=== PATIENT | female | born 1990 | race Caucasian/White ===

== ENCOUNTER 2023-12-16 09:06 | Emergency (ER) | payer OTHER, SELFPAY ==
[2023-12-16 09:32] VITALS: BP 119/76; PULSE 77; RESP 20; TEMP 36.3; O2SAT 100
--- NOTE | 2023-12-16 10:19 | ED.URI ---
HPI - URI/Sore Throat General Chief Complaint: Upper Respiratory Infection Stated Complaint: poss sinus infection History of Present Illness HPI Narrative: 33-year-old female presented for complaint of nasal congestion and pressure for over 1 week. Sinus pressure is mostly between the eyes and has thick nasal drainage. She has sore throat and cough at the onset which resolved. She has been taking [id number] Mucinex without significant improvement. Denies shortness of breath, wheezing nausea vomiting diarrhea, fevers or chills. Related Data Home Medications Medication Instructions Recorded Confirmed fluoxetine 20 mg capsule 60 mg PO DAILY 12/16/23 12/16/23 phentermine 37.5 mg tablet 37.5 mg PO DAILY 12/16/23 12/16/23 topiramate 25 mg tablet 25 mg PO DAILY 12/16/23 12/16/23 Allergies Allergy/AdvReac Type Severity Reaction Status Date / Time No Known Allergies Allergy Verified 12/16/23 09:41 Review of Systems Review of Systems: CONSTITUTIONAL: Denies body aches, fever, chills, or sweats. EYES: Denies visual changes, redness, or discharge. ENT: reports rhinorrhea, congestion, denies sore throat, otalgia. CARDIOVASCULAR: Denies chest pain, palpitations, or edema. RESPIRATORY: Denies dyspnea. GASTROINTESTINAL: Denies abdominal pain, nausea, vomiting, or diarrhea. SKIN: Denies rash NEUROLOGIC: reports headache Exam Narrative: GENERAL: well-appearing, no acute distress. EYES: conjunctivae clear ENT: Mucous membranes moist. TMs pearly pickett with normal light reflex bilaterally; no tragal tenderness. Oropharynx not erythematous without lesions. Tonsils not enlarged and without exudate. No drooling, no hoarseness, no trismus, uvula midline. No tripod positioning, hot potato voice, or soft palate swelling. NECK: Supple. No lymphadenopathy CHEST: Clear to auscultation, breath sounds equal. No respiratory distress, speaks in full sentences. HEART: Regular rate and rhythm. No murmur heard. SKIN: Warm, dry, no rash. NEURO: Alert and oriented x3. Course Course Emergency Course: Patient is aware of diagnosis, understands and agrees to treatment plan. Anticipatory guidance given. Patient agrees to follow-up as directed and is aware of reasons to seek care at the emergency department. Portions of this record may have been created with voice recognition software Level of Care: Express Care Visit Vital Signs Vital signs: Vital Signs Temperature 97.4 F L 12/16/23 09:32 Pulse Rate 77 12/16/23 09:32 Respiratory Rate 20 12/16/23 09:32 Blood Pressure 119/76 12/16/23 09:32 Pulse Oximetry 100 12/16/23 09:32 Oxygen Delivery Room Air 12/16/23 09:32 Temperature 97.4 F L 12/16/23 09:32 Pulse Rate 77 12/16/23 09:32 Respiratory Rate 20 12/16/23 09:32 Blood Pressure 119/76 12/16/23 09:32 Pulse Oximetry 100 12/16/23 09:32 Oxygen Delivery Room Air 12/16/23 09:32 MDM - URI/Sore Throat MDM Narrative Medical decision making narrative: discussed physical exam findings, reviewed prescriptions, Advise supportive treatments. Patient is appropriate for outpatient treatment and follow-up. Differential Diagnosis Differential diagnosis: Likely upper respiratory infection, otitis media, sinusitis, viral infection and pharyngitis Discharge Plan Discharge Clinical Impression: Sinusitis Patient Disposition: Home, Self-Care Condition: Stable Instructions: Antibiotic Form, Rhinosinusitis (ED) Additional Instructions: Take antibiotic as directed Recommend Flonase spray and Zyrtec (or Claritin/Tequila) Tylenol 1000mg every 8 hours as needed for pain Symptomatic treatment includes: rest, push fluids, and increase humidity of the air at home. Follow up with your primary care provider in 1 week. Go to the ER for worsening symptoms or concerns. Prescriptions: New doxycycline hyclate 100 mg tablet 100 mg PO BID 7 Days Qty: 14 0RF No Action topiramate 25 mg tablet 25 mg PO DAILY phentermine 37.5 mg tablet 37.5 mg PO DAILY fluoxetine 20 mg capsule 60 mg PO DAILY Follow-up/Referrals: Bc,Feliberto Gross MD [Primary Care Provider] -
== END 2023-12-16 10:33 | disposition home or self-care (01) ==
PROVIDERS: Emergency Provider Nurse Practitioner Family; PCP Family Medicine
DX: J32.9 Chronic sinusitis, unspecified (principal)
CPT/HCPCS: 99203; G0463